=== PATIENT | male | born 1995 | race African-American/Black ===

== ENCOUNTER 2022-02-03 04:47 | Emergency (ER) | payer OTHER ==
[~2022-02-03] VITALS: Ht 193 cm; Wt 74.8 kg
== END 2022-02-03 07:03 | disposition home or self-care (01) ==
LOC: ER 04:47
DX: S62.327A Displaced fracture of shaft of fifth metacarpal bone, left hand, initial encounter for closed fracture (principal); W22.8XXA Striking against or struck by other objects, initial encounter
CPT/HCPCS: 73130; J2270